=== PATIENT | female | born 1980 | race Caucasian/White ===

== ENCOUNTER 2021-11-24 16:41 | Inpatient (IN) | payer OTHER ==
[2021-11-24] MEDS ORDERED: ACETAMINOPHEN 500 MG TABLET PO ONE (17:15)
[2021-11-24] MEDS ORDERED: ONDANSETRON HCL 4 MG TABLET PO ONE (17:15)
[2021-11-24 17:56] LABS: BASOPHILS % (AUTO) 0.3 % (0.0-2.0); EOSINOPHILS % (AUTO) 0.1 % (1.0-6.0); HEMOGLOBIN 14.7 g/dL (12.0-16.0); LYMPHOCYTES # (AUTO) 0.7 K/uL (1.0-4.8); LYMPHOCYTES % (AUTO) 9.2 % (22.0-44.0); MEAN CORPUSCULAR HEMOGLOBIN 29.2 pg (26.0-34.0); MEAN CORPUSCULAR VOLUME 84 fL (80-100); MONOCYTES # (AUTO) 0.4 K/uL (0.1-1.0); MONOCYTES % (AUTO) 4.7 % (2.0-9.0); NEUTROPHILS # (AUTO) 6.9 K/uL (1.8-7.7); PLATELET COUNT (AUTO) 182 K/uL (150-450); RED BLOOD CELL COUNT(AUTO) 5.04 MIL/uL (4.00-5.20); RED CELL DISTRIBUTION WIDTH 13.9 % (11.5-14.5)
[2021-11-24 17:57] LABS: NEUTROPHILS % (AUTO) 85.7 % (40.0-70.0)
[2021-11-24 18:03] LABS: ANION GAP 6 mmol/L (8-16); CALCIUM, TOTAL 9.3 mg/dL (8.8-10.5); CARBON DIOXIDE 27 mmol/L (22-29); CHLORIDE 102 mmol/L (98-107); CREATININE 0.58 mg/dL (0.60-1.30); GLUCOSE,RANDOM 94 mg/dL (70-110); POTASSIUM 3.5 mmol/L (3.5-5.1); SODIUM SERUM 135 mmol/L (136-145); UREA NITROGEN, BLOOD 12 mg/dL (7-18)
[2021-11-24 18:06] LABS: GLOMERULAR FILTR. RATE CALC > 60 mL/min (>60)
[2021-11-24 18:10] LABS: COVID AG,FIA SOURCE NASOPHARYNGEAL
[2021-11-24 18:16] LABS: ALANINE AMINOTRANSFERASE 59 U/L (12-78); ALBUMIN 3.8 g/dL (3.4-5.0); ALKALINE PHOSPHATASE 74 U/L (46-116); ASPARTATE AMINOTRANSFERASE 27 U/L (15-37); BILIRUBIN,TOTAL 1.6 mg/dL (0.1-1.0); HCG,QUANTITATIVE < 1 mIU/mL (0-6); TOTAL PROTEIN, SERUM 8.3 g/dL (6.4-8.2)
[2021-11-24] MEDS ORDERED: ACETAMINOPHEN 325 MG TABLET PO PRN (18:30)
[2021-11-24] MEDS ORDERED: ONDANSETRON HCL 4 MG/2 ML VIAL IVP PRN (18:30)
[2021-11-24] MEDS ORDERED: 0.9% SODIUM CHLORIDE 10 ML SYRINGE IVP PRN (18:30)
[2021-11-24] MEDS ORDERED: ONDANSETRON HCL 4 MG TABLET PO PRN (19:00)
[2021-11-24] MEDS ORDERED: DICYCLOMINE HCL 10 MG CAPSULE PO PRN (20:00)
[2021-11-24] MEDS ORDERED: METOCLOPRAMIDE HCL 5 MG/ML 2 ML VIAL IVP PRN (20:00)
[2021-11-24] MEDS ORDERED: MAGNESIUM SULFATE 2 GM, MVI, ADULT NO.1 WITH VIT K 10 ML, THIAMINE 100 MG, FOLIC ACID 1... IV ONE ×5 (20:00)
[2021-11-24] MEDS ORDERED: LORazepam 2 MG/ML VIAL IVP PRN (20:00)
[2021-11-24] MEDS ORDERED: LOPERAMIDE HCL 2 MG CAPSULE PO PRN (20:00)
[2021-11-24 20:21] VITALS: BP 157/91
[2021-11-24 21:00] VITALS: BP 104/73
[2021-11-24] MEDS: TEMAZEPAM 15 MG CAPSULE PO SCH (21:15)
[2021-11-24 23:42] VITALS: BP 127/74
[2021-11-25 05:15] VITALS: BP 146/93
[2021-11-25 08:15] VITALS: BP 149/89
[2021-11-25] MEDS ORDERED: CloNIDine HCL 0.1 MG TABLET PO PRN (10:45)
[2021-11-25 12:09] VITALS: BP 148/92
[2021-11-25] MEDS: LORazepam 1 MG TABLET PO PRN (16:14)
[2021-11-25 16:34] VITALS: BP 156/87
[2021-11-25] MEDS: MAGNESIUM SULFATE 2 GM, MVI, ADULT NO.1 WITH VIT K 10 ML, THIAMINE 100 MG, FOLIC ACID 1... IV SCH ×5 (17:41)
[2021-11-25 19:42] VITALS: BP 149/99
[2021-11-25] MEDS: TEMAZEPAM 15 MG CAPSULE PO SCH (20:17)
[2021-11-25 23:44] VITALS: BP 154/86
[2021-11-26 04:04] VITALS: BP 158/90
[2021-11-26 08:02] VITALS: BP 141/81
[2021-11-26] MEDS: MAGNESIUM SULFATE 2 GM, MVI, ADULT NO.1 WITH VIT K 10 ML, THIAMINE 100 MG, FOLIC ACID 1... IV SCH ×5 (10:45)
[2021-11-26] MEDS: LORazepam 1 MG TABLET PO PRN ×2 (11:30→23:21)
[2021-11-26 13:16] VITALS: BP 128/79
[2021-11-26 15:57] VITALS: BP 147/93
[2021-11-26 20:38] VITALS: BP 139/96
[2021-11-26] MEDS: TEMAZEPAM 15 MG CAPSULE PO SCH (20:39)
[2021-11-27 00:15] VITALS: BP 165/107
[2021-11-27 03:20] VITALS: BP 147/91
[2021-11-27] MEDS: ACETAMINOPHEN/CODEINE 300-15 MG TABLET PO PRN ×2 (03:26→20:06)
[2021-11-27 07:28] VITALS: BP 134/87
[2021-11-27] MEDS: LORazepam 1 MG TABLET PO PRN ×2 (08:20→16:30)
[2021-11-27] MEDS: MAGNESIUM SULFATE 2 GM, MVI, ADULT NO.1 WITH VIT K 10 ML, THIAMINE 100 MG, FOLIC ACID 1... IV SCH ×5 (10:45)
[2021-11-27 15:24] VITALS: BP 148/95
[2021-11-27] MEDS: TEMAZEPAM 15 MG CAPSULE PO SCH (20:06)
[2021-11-27 20:20] VITALS: BP 156/95
[2021-11-28] VITALS: BP 152/87
[2021-11-28 05:15] VITALS: BP 145/80
[2021-11-28] MEDS: ACETAMINOPHEN/CODEINE 300-15 MG TABLET PO PRN (06:02)
[2021-11-28 07:39] VITALS: BP 129/92
[2021-11-28] MEDS: MAGNESIUM SULFATE 2 GM, MVI, ADULT NO.1 WITH VIT K 10 ML, THIAMINE 100 MG, FOLIC ACID 1... IV SCH ×5 (10:45)
[2021-11-28] MEDS ORDERED: TEMA15CA PO (11:35)
[2021-11-28] MEDS ORDERED: ACET-3560 PO (11:35)
[2021-11-28] MEDS ORDERED: CLON0.1T2 PO (11:36)
[2021-11-28] MEDS ORDERED: DICY10 PO (11:36)
[2021-11-28] MEDS ORDERED: LOPE2 PO (11:37)
[2021-11-28] MEDS ORDERED: LORA-1000 IVP (11:37)
[2021-11-28] MEDS ORDERED: METO5TAB95 IVP (11:39)
== END 2021-11-28 13:30 | DRG 641 ==
LOC: EMS 16:44 → 6S 17:00
PROVIDERS: ADMIT Internal Medicine; ATTEND Internal Medicine
DX: E87.1 Hypo-osmolality and hyponatremia (principal); F11.23 Opioid dependence with withdrawal; F10.239 Alcohol dependence with withdrawal, unspecified; F12.90 Cannabis use, unspecified, uncomplicated; Z20.822 Contact with and (suspected) exposure to COVID-19; Y90.9 Presence of alcohol in blood, level not specified
CPT/HCPCS: 80053; 84702; 85025; 99285; G0480; J2765; J3411; J3475; J3490; J7030; Q0162